=== PATIENT | male | born 1970 | race Caucasian/White ===

== ENCOUNTER 2024-04-26 05:27 | Inpatient (IN) | payer BC, SELFPAY ==
[2024-04-25 16:30] VITALS: BP 144/93
[2024-04-25 17:05] LABS: ALT (SGPT) 30 U/L (0-50); AST (SGOT) 32 U/L (17-59); Albumin 4.1 g/dl (3.5-5.0); Alkaline Phosphatase 77 U/L (38-126); Blood Urea Nitrogen 18 mg/dl (9-20); Calcium 9.1 mg/dl (8.4-10.2); Carbon Dioxide 26 mmol/L (22-30); Chloride 97 mmol/L (98-107); Glucose 88 mg/dl (70-99); Lipase 14 U/L (23-300); Potassium 3.8 mmol/L (3.5-5.1); Sodium 133 mmol/L (135-145); Total Protein 6.7 g/dl (6.3-8.2); eGFR > 60.00
[2024-04-25 17:28] LABS: Hematocrit 44.3 % (39.0-52.0); Hemoglobin 15.5 g/dL (13.0-18.0); Mean Corpuscular Hgb 31.8 pg (27.0-31.0); Mean Platelet Volume 9.5 fL (7.4-10.4); Platelet Count 396 10^3/uL (130-400); Red Blood Cell Count 4.87 10^6/uL (4.70-6.10); Red Cell Dist. Width 12.6 % (11.5-14.5); White Blood Cell Count 10.7 10^3/uL (4.8-10.8)
[2024-04-25 17:43] LABS: Absolute Neutrophils -Man Diff 4.3 10^3/uL (1.4-6.5); Band Neutrophils 1 % (0-3); Eosinophils 1 % (0-6); Lymphocytes 37 % (20-51); Monocytes 21 % (2-9); Normal RBC Morphology Yes; Platelets Checked Yes; Segmented Neutrophils 40 % (42-75); Total Cells Counted 100
[2024-04-25 21:55] VITALS: BP 136/86; BMI 32.3
[2024-04-25] MEDS: NSS 1000 IV (22:02)
--- NOTE | 2024-04-25 22:15 | ED.GENMED ---
History of Present Illness
General
Chief Complaint: Abdominal Pain
Source: patient
Exam Limitations: none
Time Seen by Provider: 04/25/24 20:45
History of Present Illness
History of Present Illness:
This is a 53 year old male that comes in with c/o abd pain. States that he went to work today as he just started a new job. States that he has abd pain that goes form the upper abd to the lower abd. States that this has been going on since
cinthya. State that it comes and goes. States that when he moves, walks or he has any gas he has pain. States that he feels like there is a ball inflatted in his stomach. States that he has nausea and vomiting on Sunday. Denies any fever, chills, chest
pain, SOB, diarrhea, headache, dizziness, urinary burning.
Past History
Past History
ED Past Medical History: HTN, Hypercholesterolemia and Other (Diverticulitis, )
ED Past Surgical History: Bowel resection (X 2) and Other (Hernia repair X 2)
Social History
Tobacco: Non-smoker
Alcohol: Occasional
Personal: Single
Living: with family
Review of Systems
Review of Systems
All Other Systems: ROS reviewed and negative except as documented in HPI and ROS
Constitutional: Reports no symptoms; Denies fever or chills
EENT: Reports no symptoms
Respiratory: Reports no symptoms; Denies cough or trouble breathing
Cardiac: Reports no symptoms; Denies chest pain
ABD/GI: Reports abdominal pain, nausea and vomiting; Denies diarrhea
: Reports no symptoms; Denies dysuria, frequency or urgency
Musculoskeletal: Reports no symptoms
Skin: Reports no symptoms
Neurological: Reports no symptoms; Denies dizzy or headache
Psychiatric: Reports no symptoms
Phy Exam
General Physical Exam
General Presentation: well appearing and no apparent distress
General age: appears stated age
General Skin: warm and dry
General Habitus: normal
General Mental: alert
General Hydration: appears well hydrated
ENT Exam
ENT Exam: TM's normal, pharynx normal and neck supple
Eye Exam
Eye Exam: EOMI
Cardiovascular Exam
Cardiovascular Exam: regular rate/rhythm, no edema, no murmur and normal peripheral pulses
Pulmonary Exam
Pulmonary Exam: no respiratory distress, chest non tender, no rhonchi, no cough and other (Fine crackles right base)
Gastrointestinal Exam
Gastrointestinal Exam: normal bowel sounds, soft, no organomegaly, no pulsatile mass, distended and tender (Generalized tenderness with palpation)
Musculoskeletal Exam
Musculoskeletal Exam: full ROM and no edema
Skin Exam
Skin Exam: normal color, warm/dry, no rash and no petechia
Psychiatric Exam
Psychiatric Exam: normal mood/affect
Course
Orders/Labs/Results
Orders:
Orders
04/25/24 16:35
Complete Blood Count/With Diff Urgent
Comprehensive Metabolic Panel Urgent
Lipase Urgent
Manual Differential Urgent
04/25/24 21:54
0.9% Sodium Chloride 1000 ml [Nss] 1,000 ml IV BOLUS
04/25/24 23:35
Urinalysis Reflex To Culture Urgent
Date Specimen was Collected: 04/25/24
Time Specimen was Collected: 23:34
04/26/24 00:00
CT Abd/pelvis W Iv Cont Urgent
Reason For Exam: Generalized abd pain, abd distention
Abnormal Lab Results
04/25/24 04/25/24
16:35 23:35
MCH 31.8 H pg
(27.0-31.0)
Segmented Neutrophils 40 L %
(42-75)
Monocytes (Manual) 21 H %
(2-9)
Sodium 133 L mmol/L
(135-145)
Chloride 97 L mmol/L
(98-107)
Lipase 14 L U/L
(23-300)
Urine Ketones 3+ A
(Negative)
04/25/24 16:35
04/25/24 16:35
Sodium slightly low. Chloride slightly low. Lipase normal at 14, Urine negative for infection.
Vital Signs
Initial and Last Documented VS:
Initial Vital Signs
Temp
98.3 F
04/25/24 16:26
Last Documented Vital Signs
Temp Pulse Resp BP Pulse Ox
99.2 F 101 18 141/85 94
04/25/24 21:50 04/25/24 21:50 04/25/24 21:50 04/26/24 00:00 04/26/24 00:00
MDM/Problems Addressed
Differential Diagnosis Includes:
Bowel obstruction. Diverticulitis
MDM/Problems Addressed:
This is a 53 year old male that comes in with /o abd pain. States that this started on and it comes and goes. States that he has discomfort from the upper abd to the lower abd. States that is nauseated and vomited on Sunday night.
WIll check labs and get CT scan.
Back into see patient. Explained that he has a partial small bowel obstruction. This may be from adhesions. Will admit patient. Hospitalist notified.
Chronic conditions affecting care: Previous abdomnial surgery
Acute Exacerbation and/or Progression of Chronic Illness: Previous abdomnial surgery
*Radiology
Radiology exam reviewed: radiology read reviewed (CT night hawk- Asymmetric opacity at the left lung base could be pneumonia if clinically suspected. Fluid-filled and distended small bowel loops suggestive of at least partial bowel obstruction.
Small bowel tapers in a normal more proximally with a possible transition point in the mid abdomen ) and all reviewed NAD by ED Provider (CT cont-( and ). Could be due to adhesivions given history of abdominal surgery. No evidence of
bowel ischemia. No free fluid. Fat-containing periumbilical hernia with inflammatory changes is present can be clinically correlated with symptoms. )
*Pulse Oximetry
Patient hypoxic: no
*EKG
Interpreted by ED Provider?: NA
Rate: EKG- N/A
*Senior Speech Pathologist Interpretation
Rate: Senior Speech Pathologist- N/A
*Critical Care Note
Total Time (30-74mins, 75-104mins- exclusive of procedures): Not Applicable
ED Attending Note
-
Portions of this chart may have been created with voice recognition software.� Occasional wrong word or��sound alike� substitutions may have occurred due to the inherent limitations of voice recognition software.
Discharge Plan
Departure
Patient Disposition: Admit
Date of Disposition: 04/26/24
Time of Disposition: 01:37
Admit to: Med/Surg
Presentation/result/management discussed w/ accepting MD/DO: Hospitalist
Patient with high blood pressure during this ER visit?: Yes
Condition: Good
Covid-19: Not Applicable
Discharge Problem:
Abdominal pain, Partial small bowel obstruction
Referrals:
NONE,* [Family Provider] -
Interventions
Interventions:
*Risk Screen - Suicide Last Done: 04/25/24 16:26
*General Assessment Last Done: 04/25/24 21:49
*Neglect/Abuse Screening Last Done: 04/25/24 21:49
ED- Fall Risk Assessment Last Done: 04/25/24 21:56
*ED COVID-19 Vaccine History Last Done: 04/25/24 21:49
SW-Zrhkib-[place]nj[place]af[place] Assessment Last Done: 04/25/24 21:56
Discharge Date and Time
Print Language: KHMER
[2024-04-25 23:38] VITALS: BP 141/85
[2024-04-25 23:46] LABS: Urine Albumin Trace (Neg - Trace); Urine Bilirubin Negative (Negative); Urine Character Clear (Clear); Urine Color Yellow; Urine Glucose Negative (Negative); Urine Ketone 3+ (Negative); Urine Leukocyte Negative (Negative); Urine Nitrite Negative (Negative); Urine Occult Blood Negative (Negative); Urine Specific Gravity 1.025 (<1.030); Urine Urobilinogen Negative (Neg - 1+)
[2024-04-26] VITALS: BP 141/85
--- NOTE | 2024-04-26 04:55 | HPS.HSE ---
Family Physician
-
Family Physician: * NONE
Chief Complaint
-
Abd Pain / Distention
History of Present Illness
Patient is a 53y M with PMH significant for hypertension who presents to ED complaining of abdominal pain and diarrhea. Patient states that his entire family has had GI symptoms for the past several days. Most family members have had 'explosive
diarrhea' though he has only had some loose stools. His symptoms started on Sunday. On Sunday he began to note abdominal distention and discomfort. He had fewer stools and felt that he was backed up. He took a laxative on Sunday evening and
had a large, loose BM overnight into Sunday. he felt improved for a short period of time; however, the distention and discomfort soon returned.
He states that he has not moved his bowels since that time. He has passed flatus over the past several days.
He denies any fevers / chills.
He had N/V of non-bloody emesis x a few episodes - none in the past 24 hours.
This evening he felt his symptoms increasing and presented to Urgent Care. He was referred to the ED.
He denies any prior history of SBO. He does have history of abdominal surgeries.
Medical History
Past Medical History
Past Medical History: Reports Other
Additional Past Medical History:
Hypertension
Dyslipidemia
Diverticular Disease
Past Surgical History: Reports Other
Additional Past Surgical History:
Partial Colon Resection x 2 (diverticular disease)
Hernia Repair x 2
Social History
Tobacco: Non-smoker
Alcohol: Occasional
Drug: None
Family History
Family History: Not pertinent
Allergies / Home Medications
Allergies reflects when Allergies were last updated in [facility].
Home Medications with original date entered in [facility]
Allergy/Medication List:
Allergies
Allergy/AdvReac Type Severity Reaction Status Date / Time
No Known Allergies Allergy Unverified 04/25/24 16:29
Home Medications
amlodipine 5 mg tablet 5 mg PO DAILY 04/26/24
atorvastatin 20 mg tablet 20 mg PO HS 04/26/24
lisinopril 20 mg tablet 20 mg PO DAILY 04/26/24
Review of Systems
-
History Source: Patient
A 12 point ROS was completed and negative except as noted: Yes
Constitutional: Reports Fatigue; Denies Fever or Chills
EENT: Denies Sore Throat
Respiratory: Denies Cough or Trouble Breathing
Cardiac: Denies Chest Pain or Palpitations
Abdomen/GI: Reports Abdominal Pain, Nausea, Vomiting, Diarrhea and Anorexia; Denies Bloody Stools or Black Stools
: Denies Dysuria, Frequency or Flank Pain
Musculoskeletal: Denies Joint Pain or Edema
Neurological: Denies Dizzy or Headache
Psych: Denies Depression or Anxiety
Physical Exam
Vital Signs
Vital Signs
Temp Pulse Resp BP Pulse Ox
99.2 F 101 18 141/85 94
04/25/24 21:50 04/25/24 21:50 04/25/24 21:50 04/26/24 00:00 04/26/24 00:00
Physical Exam
General: Other (53y M in no acute distress)
HEENT: Moist mucous membranes and PERRLA
Respiratory: Clear; No Wheezes, Rales or Rhonchi
Cardiac: S1/S2 and Regular Rhythm; No Murmur
GI: Other (Softly distended. Bowel sounds are present. Diffusely / mildly tender with voluntary guarding.)
Musculoskeletal: No Clubbing, No Cyanosis and No Edema
Neuro: AO x 3
Laboratory Results
-
04/25/24 16:35
04/25/24 16:35
Laboratory Results
Total Bilirubin 1.0 mg/dl (0.2-1.3) 04/25/24 16:35
AST 32 U/L (17-59) 04/25/24 16:35
ALT 30 U/L (0-50) 04/25/24 16:35
Alkaline Phosphatase 77 U/L (38-126) 04/25/24 16:35
Lipase 14 U/L (23-300) L 04/25/24 16:35
Impression/Plan
-
A/P: Patient is a 53y M with PMH significant for hypertension who presents to ED complaining of abdominal pain and distention.
Partial SBO
Suspected Gastroenteritis
- Admit for further evaluation and treatment.
- NPO, IVFs, pain control and anti-emetics as needed.
- IVF support.
- Follow for flatus / stool passage.
- Check stool studies if any diarrhea.
- Follow for clinical improvement and trial of PO intake when able.
- Consider NG decompression +/- Surgery evaluation if symptoms do not improve.
Benign Hypertension
- Hold PO meds acutely.
DVT Prophylaxis: Lovenox
Code Status: Full
[2024-04-26] MEDS: LR 1000 IV (06:04)
[2024-04-26 06:28] LABS: Hematocrit 39.7 % (39.0-52.0); Hemoglobin 14.3 g/dL (13.0-18.0); Mean Corpuscular Hgb 32.8 pg (27.0-31.0); Mean Corpuscular Volume 91.1 fL (80.0-94.0); Mean Platelet Volume 9.4 fL (7.4-10.4); Platelet Count 380 10^3/uL (130-400); Red Blood Cell Count 4.36 10^6/uL (4.70-6.10); Red Cell Dist. Width 12.5 % (11.5-14.5); White Blood Cell Count 12.8 10^3/uL (4.8-10.8)
[2024-04-26 06:39] LABS: Blood Urea Nitrogen 13 mg/dl (9-20); Calcium 8.4 mg/dl (8.4-10.2); Carbon Dioxide 20 mmol/L (22-30); Chloride 102 mmol/L (98-107); Estimated Creatinine Clearance > 125 ml/min; Glucose 72 mg/dl (70-99); Potassium 3.8 mmol/L (3.5-5.1); Sodium 135 mmol/L (135-145); eGFR > 60.00
--- NOTE | 2024-04-26 07:37 | W.PN.HOSP.TC ---
Today's Communication/Plan
-
see PN
Assessment / Plan
Assessment / Plan
53yo M with PMHx of HLD, HTN, diverticulitis s/p bowel resection x2 came with 6 days of abdominal cramping finally developed significant pain on the day of admission, CT found pSBO 2/2 adhesions, had BM that revieved most of his symptoms on the day
2.
A/P:
#pSBO with diarrhea
#Mild leukocytosis
#umbilical hernia, not incarcerated
stool studies
GenSx consult - advance diet as per genSx
No nausea/vomiting at this time
send stool for Norovirus and C.diff
#[facility] HTN
cont home meds
#b/l renal cyst
no follow up needed
#Pleural-based consolidations of b/l lungs with bronchograms
check COVID-19, influenza, procalcitonin
Zpack reasonable
DVT ppx lovenox
Full code
I have spent at least 57min reviewing chart, test results, communication with consultants and direct patient care
Anticipated Discharge: 24 - 48 hours
Subjective/Interval History
-
Date of Service: April 26, 2024
Objective Data
-
Labs:
Laboratory Results
04/26/24
06:11
WBC 12.8 H
Hgb 14.3
Hct 39.7
Plt Count 380
Sodium 135
Potassium 3.8
Chloride 102
Carbon Dioxide 20 L
BUN 13
Creatinine 0.7
Glucose 72
Calcium 8.4
Vital Signs:
Vital Signs
Temp Pulse Resp BP Pulse Ox
99.2 F 101 18 141/85 94
04/25/24 21:50 04/25/24 21:50 04/25/24 21:50 04/26/24 00:00 04/26/24 00:00
Review of Systems
-
History Source: Patient
All other systems: Reviewed and negative
Abdomen/GI: Reports Abdominal Pain (generalized tenderness)
Physical Exam
-
General: No Apparent Distress
HEENT: Normocephalic
Respiratory: Clear to Auscultation
Cardiac: Regular Rhythm
GI: Soft, Nondistended and Tender (diffusely )
Neuro: Awake, Alert, Oriented and AO x 3
Psych: Calm
[2024-04-26 08:35] LABS: COVID-19 Antigen Negative (Negative)
[2024-04-26 08:40] VITALS: BP 131/82
[2024-04-26 09:24] LABS: Procalcitonin < 0.05 ng/ml (0.0-0.25)
[2024-04-26] MEDS: ZITHROMAX INFUSION 250 IV (10:05)
--- NOTE | 2024-04-26 10:29 | CON.GS ---
Addendum entered and electronically signed by Eren Lozada MD 04/26/24 11:27:
I saw and examined the patient independently.
The Senior Scrum Master's note was reviewed and I agree with the note, assessment and plan except where noted below.
Comment: This is a 53-year-old male with a history of diverticulitis with to prior colon resections at [facility] as well as hernia repairs who presents with abdominal pain and bloating in the setting of recent family illnesses. He felt very
distended and had some nonbloody nonbilious emesis which prompted his visit to our ER however this morning he began to pass a significant amount of flatus and small stool. He feels significantly better.
My suspicion is that this is a partial small bowel obstruction that is already resolving.
Can trial clears for now, can advance to a low residue diet later today if clinically improved and tolerating his diet.
Can stop IV fluids.
Out of bed and ambulate.
General Surgery will continue to follow peripherally. Patient can follow-up with me as an outpatient if needed.
I spent 60 minutes in total for the care of this patient today including direct patient care and counseling, reviewing labs, imaging, coordination of care, as well as documentation.
Original Note:
Consultation
-
Date/Time Consultation Requested: 04/26/24 0700
Requesting Provider: Anthony
Reason for Consultation: pSBO
Medical History
-
Chief Complaint: n/v
History of Present Illness:
Mr. Leslie is a 53 yo male with a history of diverticulitis with 2 prior colon resections in [place] as well as hernia repairs who presents with abdominal pain and bloating. He notes that most of his family was sick with a GI bug and he and his
significant other became sick as well last weekend. His had significant diarrhea on Sunday with cramping but on Sunday the diarrhea stopped and he began having some nausea. His cramping persisted and he was eating only soups, unfortunately, he
began vomiting as well and presented for evaluation. He notes that his abdomen had become quite bloated and distended as well. This morning, he began passing a significant amount of flatus and had a small stool. He feels significant relief in
symptoms and denies active nausea.
Past Medical History
Past Medical History: Diverticulitis, HTN and Hypercholesterolemia
Past Surgical History: Bowel Resection (x2 for diverticulitis) and Hernia Repair
Social History
Tobacco: Non-Smoker
Alcohol: Occasional
Family History
Family History: Reviewed & Not Pertinent
Allergies / Home Medications
Allergy/AdvReac Type Severity Reaction Status Date / Time
No Known Allergies Allergy Unverified 04/25/24 16:29
�Medication �Instructions �Recorded �Confirmed �Type
amlodipine 5 mg tablet 5 mg PO DAILY 04/26/24 04/26/24 History
atorvastatin 20 mg tablet 20 mg PO HS 04/26/24 04/26/24 History
lisinopril 20 mg tablet 20 mg PO DAILY 04/26/24 04/26/24 History
Review of Systems
-
History Source: Patient
All other systems: Negative unless noted
A 10 point review of systems was completed, and was negative except as per HPI.
Physical Exam
Vital Signs
Temp Pulse Resp BP Pulse Ox
98.5 F 88 16 131/82 93
04/26/24 08:40 04/26/24 08:40 04/26/24 08:40 04/26/24 08:40 04/26/24 08:40
04/25/24 04/26/24 04/27/24
06:59 06:59 06:59
Actual Weight 96.2 kg
Body Mass Index (BMI) 32.3
Lab Results
04/26/24 06:11
04/26/24 06:11
WBC 12.8 10^3/uL (4.8-10.8) H 04/26/24 06:11
Hgb 14.3 g/dL (13.0-18.0) 04/26/24 06:11
Hct 39.7 % (39.0-52.0) 04/26/24 06:11
Plt Count 380 10^3/uL (130-400) 04/26/24 06:11
Physical Exam
General: Well Developed and No Apparent Distress
HEENT: Moist Mucous Membranes
Respiratory: Non Labored Respirations
GI: Soft, Non Tender, Distended (mild) and Other (umbilical hernia soft, reducible)
Skin: Warm and Dry
Neuro: Awake, Alert and AO x 3
Psych: Calm
Data Reviewed
-
CT Scan: Image Personally Visualized and interpreted, Report Reviewed by me, Discussed with Physician, Discussed with Patient and Discussed with Family
Labs: Labs Reviewed by me, Discussed with Physician, Discussed with Patient and Discussed with Family
Old Records: Reviewed
Assessment / Plan
-
53 yo male with a h/o colon resection x2 and hernia repair x2 who presents with abdominal symptoms for 6 days. He does report multiple sick contacts with symptoms initially of n/v/d. For the last 5 days, he was not passing much flatus or stool with
vomiting and worsening bloating which caused him to present for evaluation. CT imaging from the ED reviewed with concern for SBO secondary to adhesions. There is an umbilical hernia which is fat containing and not involved in his current
obstruction. He is passing flatus now with relief in nausea and overall symptoms improving. Afebrile, some tachycardia on presentation which is now resolved. Mild leukocytosis present. Stool cx pending. Will follow nonoperatively at this time for
continued improvement, suspect gastroenteritis with component of partial adhesive SBO
--Trial of clears
--IVF as per primary team
--Antiemetics/Analgesics as needed
--- NOTE | 2024-04-26 10:43 | PTCARENOTE ---
pt aaox3. pt states min pain in abd when palpated. no pain now. room air bresth sounds clear heart tones normal. ivf running as ordered. pt states he is becoming hungry able to drink yessica jay with no nausea.
[2024-04-26] MEDS: ROCEPHIN 1000 MG IV (11:31)
[2024-04-26] MEDS: FLUSH (NSS) 10 FLUSH IV ×2 (11:32)
[2024-04-26] MEDS: STERILE WATER FOR INJECTION 10 ML IV (11:32)
[2024-04-26] MEDS: NORVASC 5 MG PO (12:19)
--- NOTE | 2024-04-26 13:09 | CM ---
CM reviewed medical records. Patient denies VN, SNF or DME> Patient is moving to [facility] as his fiance lives here. Patient is active with his PCP. Patient uses [facility] in [place]
PLAN: Home no needs.
--- NOTE | 2024-04-26 13:39 | W.DCSUMMARY ---
Discharge Summary
Discharge Data
Date of Admission: 04/26/24
Date of Discharge: 04/26/24
-
Pending Results: No
Hospital Course
53yo M with PMHx of HLD, HTN, diverticulitis s/p bowel resection x2 came with 6 days of abdominal cramping finally developed significant pain on the day of admission, CT found pSBO 2/2 adhesions, had BM that revieved most of his symptoms on the day
2. Tolerated solid diet and as per agreement with [employer] - medically styable for d/c home. SInce CT showed signs of possible bronchitis with neg Procalcitonin - complete Zpack is reasonable. No diarrhea after initial bowel movement - so no stool
saples sent
I have spent at least 36min reviewing chart, test results, communication with consultants and direct patient care
Patient was managed for:
#pSBO with diarrhea
#Mild leukocytosis
#umbilical hernia, not incarcerated
#Essential HTN
#b/l renal cyst
#Pleural-based consolidations of b/l lungs with bronchograms
Discharge Plan
-
Patient Disposition: Home (Routine Discharge)
Discharge Diagnosis/Procedures: pSBO
Diet: Low Residue
Activity: As tolerated
Driving Restrictions: As prior to admission
Referrals:
NONE,* [Family Provider] -
Eren Lozada MD [Active] - As needed
Prescriptions:
New
azithromycin 250 mg tablet
250 mg PO DAILY 4 Days Qty: 4 0RF
Rx Instructions:
start on 04/27/24
Continued
atorvastatin 20 mg Tablet
20 mg PO HS
lisinopril 20 mg Tablet
20 mg PO DAILY
amlodipine 5 mg Tablet
5 mg PO DAILY
Discharge Orders:
Discharge Patient (As Directed); Ordered 04/26/24
Ordered By: Grover Cruz
Discharge Date and Time
Print Language: SINHALA
[2024-04-26 15:11] VITALS: BP 141/81
== END 2024-04-26 15:51 | disposition home or self-care (01) | DRG 390 ==
LOC: 1 ACUTE 05:27
PROVIDERS: Clinical Nurse Specialist Family Health; Emergency Medicine; ADMITTING PHYSICIAN Hospitalist; ATTENDING PHYSICIAN Internal Medicine; CONSULT PHYSICIAN Surgery; EMERGENCY PHYSICIAN Emergency Medicine
DX: K56.51 Intestinal adhesions [bands], with partial obstruction (principal); E78.00 Pure hypercholesterolemia, unspecified; I10 Essential (primary) hypertension; K42.9 Umbilical hernia without obstruction or gangrene; N28.1 Cyst of kidney, acquired; Z11.52 Encounter for screening for COVID-19
CPT/HCPCS: 74177; 80048; 80053; 81003; 83690; 83735; 84145; 85025; 85027; 87502; 87811; 96360; 96361; 99284; Q9967